=== PATIENT | male | born 1955 | race Caucasian/White ===

== ENCOUNTER 2020-07-24 08:03 | Day surgery (SDC) | payer OTHER, SELFPAY ==
[2020-07-21 12:28] VITALS: BMI 32.3
[2020-07-24] VITALS (12 sets, daily range): BP systolic 126–141; BP diastolic 80–98; PULSE 60–134; RESP 11–65; TEMP 36.2–36.4; O2SAT 10–100; BMI 32.3
[2020-07-24] MEDS: LACTATED RINGERS 1,000 ML 42 ML IV ×2 (08:25→10:02)
--- NOTE | 2020-07-24 08:38 | PM.PREOP ---
Pre-operative Note Interval Note History & Physical reviewed/Exam performed by Physician: Yes Changes to H&P: No
[2020-07-24] MEDS: CEFAZOLIN VIAL 3 GM in SODIUM CHLORIDE 0.9% 100 ML 200 ML IV (08:58)
--- NOTE | 2020-07-24 09:18 | SUR.OPER ---
Supine on padded OR bed, head on pillow, arms secured on padded arm boards at <90 degrees abduction, legs uncrossed, safety belt at thigh, tape over blanket over lower legs, gel bad under bilateral heels.
[2020-07-24] MEDS: BUPIVACAINE 0.5% (PF) VIAL 30 ML INJ (09:22)
[2020-07-24] MEDS: BACITRACIN OINT 0.9 GM PCKT 1 APPLIC TOP (09:24)
[2020-07-24] MEDS: BUPIVACAINE LIPOSOME 266 MG/20 ML VIAL INJ (09:50)
[2020-07-24] MEDS: fentaNYL 100 MCG/2 ML INJ IV ×4 (10:35→11:19)
--- NOTE | 2020-07-24 10:36 | PM.OP.1 ---
Operative Date/Time/Diagnoses Date of procedure: 07/24/20 Time of procedure: 10:36 Pre-op diagnosis: Large right hydrocele Post-op diagnosis: same Procedure & Clinicians Procedure: 1. Right hydrocelectomy Same procedure as scheduled: Yes Indications: Large right hydrocele Surgeon: Na Ayala Click Yes if Unassisted: Yes Anesthesia Type: General and Local (1.33% Exparel) Operative Notes Findings: Large simple right hydrocele with clear straw-colored fluid. Closure Type: primary Specimen(s): none sent Applied: drain(s) (15 Brazilian fenestrated Efren drain) Estimated Blood Loss (mL): 2 Blood products transfused: none Procedure in detail: The patient was positioned in supine and administered general anesthesia. The lower abdomen, genitalia, and groin were then prepped and draped in sterile fashion. Local anesthetic was used to infiltrate the midline scrotal raphae Fe skin and subcutaneous dartos fascia. Needlepoint cautery pen was then used to create a midline scrotal incision. The dartos fascia was divided using the cautery pen and hemostasis was attained using the same instrument. The tunica vaginalis on the right was then encountered and appropriate plane was developed using blunt and cautery technique. The tunica vaginalis was cleared circumferentially and then delivered from the right hemiscrotum. A midline longitudinal division of the tunica vaginalis was then conducted with drainage of 600 cc clear straw-colored urine. A book sorter repair was then performed by effacing the divided tunica vaginalis posteriorly and reapproximating using a running horizontal mattress of 3-0 Monocryl. The right testis and cord were then repositioned in the right hemiscrotum and secured to the posterior wall with interrupted 3-0 Monocryl. Local anesthetic was then used to infiltrate the subcutaneous dartos fashion skin in the right inferolateral aspect of the right hemiscrotum. A 15 Brazilian Efren drain was then positioned appropriately in the right hemiscrotum with excess drain length cut and discarded. The drain was secured level of skin with 2-0 silk. The midline dartos fascia was then reapproximated using a running 2-0 Monocryl. The skin was then reapproximated using a running horizontal mattress of 4-0 Monocryl. Antibiotic ointment was then applied the midline incision and the drain exit site. Dry sterile fluffs were then applied to the scrotum and drain site. The patient was then fitted with an extra-large athletic supporter. Patient was then awakened, transferred to a gurney, and transferred to recovery in stable condition. Complications: none Post-operative Condition: stable Disposition: PACU Plan for aftercare: Discharge home
[2020-07-24] MEDS: OXYCODONE/ACETAMINOPHEN 5/325 TABLET 1 TAB PO ×2 (10:50→11:19)
== END 2020-07-24 12:26 | disposition home or self-care (01) ==
PROVIDERS: Family Provider Family Medicine Geriatric Medicine; PCP Student in an Organized Health Care Education/Training Program; Referring Provider Student in an Organized Health Care Education/Training Program; Visit Provider Specialist
PROC: (CPT 55040; principal; 2020-07-24 07:45)
DX: N43.3 Hydrocele, unspecified (principal); Z80.42 Family history of malignant neoplasm of prostate; E66.9 Obesity, unspecified; Z68.32 Body mass index [BMI] 32.0-32.9, adult
CPT/HCPCS: 55040; 82962; C9290; J0690; J1100; J2405; J2704; J3010